=== PATIENT | male | born 2000 | race Asian ===

== ENCOUNTER 2022-12-05 09:25 | Emergency (ER) | payer OTHER, SELFPAY ==
[2022-12-05 09:50] VITALS: BP 128/61; PULSE 73; RESP 18; TEMP 36.6; O2SAT 98; BMI 23.6
--- NOTE | 2022-12-05 10:52 | ED.GENADULT ---
HPI - General Adult General Chief complaint: General Medical Stated complaint: shoulder pain/ jaw pain Time Seen by Provider: 12/05/22 10:41 Source: patient Mode of arrival: ambulatory Limitations: no limitations History of Present Illness HPI narrative: 22 yo male healthy here with complaints of right sided jaw pain x 1week with no injury or trauma. worsened with chewing, opening his mouth. No known injury or trauma. No radiation of pain. No difficulty breathing, difficulty swallowing. Related Data Allergies Allergy/AdvReac Type Severity Reaction Status Date / Time No Known Allergies Allergy Verified 12/05/22 09:49 Review of Systems Review of Systems: Yes all other systems are reviewed and are negative Constitutional: Constitutional: Reports no additional constitutional complaints, Denies body ache(s), Denies chills, Denies fever(s), Denies headache(s) and Denies weakness Eyes: Eyes: Reports no additional eye complaints and Denies change in vision ENT: Reports system reviewed and no additional complaints, except as documented, Denies dizziness, Denies headache(s), Denies nasal congestion, Denies nasal discharge and Denies neck pain Comments: +jaw pain Cardiovascular: Cardiovascular: Reports no additional cardiovascular complaints, Denies chest pain, Denies leg edema and Denies dyspnea Respiratory: Respiratory: Reports no additional respiratory complaints, Denies cough and Denies dyspnea Gastrointestinal: Gastrointestinal: Reports no additional gastrointestinal complaints, Denies abdominal pain, Denies diarrhea, Denies nausea and Denies vomiting Genitourinary: Genitourinary: Denies urinary incontinence Musculoskeletal: Musculoskeletal: Reports no additional musculoskeletal complaints, Denies back pain, Denies arthralgias, Denies joint swelling, Denies neck pain, Denies numbness and Denies tingling Integumentary/Breasts: Skin/Breast: Reports system reviewed and no additional complaints, except as docu and Denies rash Neurologic: Reports system reviewed and no additional complaints, except as documented, Denies Abnormal speech present, Denies dizziness, Denies headache(s), Denies numbness, Denies tingling and Denies weakness PMFSH Past Medical History Attestation statement: The following information was validated with the patient. Source: old records reviewed and nursing notes reviewed Social History Social History Advance Directives: No Physical Exam ED Vital Signs: Vital Signs - 24 hr 12/05/22 09:50 Temperature 98 F Pulse Rate 73 Respiratory Rate 18 Blood Pressure 128/61 Pulse Oximetry 98 BMI result Body Mass Index 23.6 Const General: cooperative, healthy appearing, comfortable and no acute distress Orientation/consciousness: patient oriented x3 Limitations: no limitations HENMT Head: Yes normal to inspection Ears: hearing grossly normal bilaterally and TM's normal bilaterally General nose exam: Normal external nose present Face and sinus: Yes normal facial exam Mouth: Normal oral and palatal mucosa present and other ( There is tenderness on palpation over the right TMJ. No trismus.) Throat: Yes posterior oropharynx normal Eyes General: appearance normal, both eyes and all related structures Pupils: Equal, round and reactive pupils present Neck Neck: Yes normal visual inspection, Yes full ROM and Yes no lymphadenopathy Chest Chest palpation & inspection: normal inspection of the chest Resp Effort & Inspection: normal respiratory effort Auscultation: clear to auscultation bilaterally Cardio Rate: regular rate Rhythm: regular rhythm Peripheral pulses: Peripheral pulses 2+ throughout GI Inspection: Yes normal to inspection Palpation (GI): Soft to palpation and nontender Auscultation: normal bowel sounds Back/Spine/Pelvis Thoracic/Lumbar Spine: thoracic and lumbar spine normal to inspection Skin General skin exam: no rashes or lesions noted Neuro General: patient oriented x3, no focal motor deficits and normal sensation to monofilament Cranial nerves: Yes Equal, round and reactive pupils present Cognition (Neuro): normal cognition Speech: No Abnormal speech present Gait exam (Neuro): Normal gait present Motor exam (neuro): 5/5 motor strength present throughout Extrem General: Yes normal to inspection Medical Decision Making Medical Decision Making MDM Narrative: 22-year-old male here with atraumatic right jaw pain for 1 week which is worsened with chewing, opening and closing his mouth. On exam patient has tenderness over the right TMJ with no trismus. Likely TMJ arthralgia. no injury reported to suggest dislocation or fracture will recommend NSAIDs, soft foods and follow up with primary or dental clinic. Differential Diagnosis Differential Diagnoses: The differential diagnosis associated with the presentation includes TMJ arthralgia low concern for fracture Tests considered The following testing was considered but not selected: no trauma or injury to suggest need for CT facial bones Prescription Management I considered prescription management with: Pain Medication see discussion above Discharge Plan Discharge Clinical Impression: TMJ arthralgia Patient Disposition: Home, Self-Care Instructions: Temporomandibular Disorder (ED) Additional Instructions: Ibuprofen 3 times a day as needed soft foods wear the retainer every night follow-up with your doctor and/or dentist Referrals: Physician,Román J [Primary Care Provider] - 1 week Interventions: ED Discharge Assessment Last Done: 12/05/22 11:16 Discharge Date/Time: 12/05/22 11:16
== END 2022-12-05 11:16 | disposition home or self-care (01) ==
PROVIDERS: Emergency Provider Emergency Medicine
DX: M26.621 Arthralgia of right temporomandibular joint (principal)
CPT/HCPCS: 99282

== ENCOUNTER 2023-10-30 20:23 | Emergency (ER) | payer OTHER, SELFPAY ==
--- NOTE | ~2023-10-30 | XR_ITS ---
EXAMINATION: XR HAND, RIGHT CLINICAL INFORMATION: Pain status-post injury. COMPARISON: None available. TECHNIQUE: PA, lateral, and oblique views of the right hand. FINDINGS: Bony alignment and mineralization are normal. A slightly displaced fracture fragment is noted of the lateral margin of the base of the fourth distal phalanx. The fracture line shows intra-articular extension. No dislocation is seen. The proximal and distal carpal rows are intact. There is a mild ulnar minus variance. No focal soft tissue swelling, gas or foreign body is seen. XR/XR hand RT min 3V IMPRESSION: A slightly displaced fracture fragment is noted of the lateral margin of the base of the fourth distal phalanx. This fracture shows intra-articular extension.
[2023-10-30 20:37] VITALS: BP 136/66; PULSE 67; RESP 16; TEMP 36.9; O2SAT 98; BMI 24.3
--- NOTE | 2023-10-30 20:41 | ED_ITS ---
HPI - General Adult General Chief complaint: General Medical Stated complaint: right hand inj Time Seen by Provider: 10/31/23 00:16 History of Present Illness ED Provider: Edmundo ALEX narrative: The patient is a generally healthy 23-year-old male who accidentally got the distal end of the right ring finger caught in a car door when the door was closing. There was no other injuries. He has a great deal of pain at the end of his finger. Related Data Previous Rx's ?Medication ?Instructions ?Recorded ibuprofen 600 mg tablet 600 mg PO Q6H PRN pain #14 tabs 10/31/23 morphine 15 mg immediate release 15 mg PO Q6H PRN pain #12 tabs 10/31/23 tablet Allergies Allergy/AdvReac Type Severity Reaction Status Date / Time No Known Allergies Allergy Verified 10/30/23 20:38 Review of Systems Review of Systems: Yes all other systems are reviewed and are negative [facility] Social History Social History Advance Directives: No Advance Directives Information Provided: No Do you have a plan to hurt others: No Plan Physical Exam ED Vital Signs: Vital Signs - 24 hr 10/30/23 20:37 10/31/23 00:29 10/31/23 00:48 Temperature 98.5 F 97.9 F 97.9 F Pulse Rate 67 64 64 Respiratory Rate 16 16 16 Blood Pressure 136/66 124/62 124/62 Pulse Oximetry 98 97 97 Oxygen Delivery Method Room Air Room Air Room Air BMI result Body Mass Index 24.3 Const Other: The patient is a healthy and athletic looking 23-year-old. He is awake and alert, pleasant and cooperative. He looks somewhat uncomfortable. HENMT Other: Face is unremarkable. Mucous membranes moist. Eyes Other: Pupils are round equal, conjunctivae clear Skin Other: There is some bruising along the paronychial skin on the radial side of the base of the nail of the right ring finger. The skin is intact. There is no subungual hematoma. Neuro Other: The patient is awake and alert with a normal mental status. The hand is neurovascularly intact. Extrem Other: The patient has some subtle soft tissue swelling to the radial side of the distal right ring finger. There is no gross deformity. There is some slight bruising under the paronychial skin but no disruption of the skin or the nail. No subungual hematoma. Course Course Course Narrative: RME performed by Rut Thurston PA-C. Patient is a 23 year old assigned male at presenting to the emergency department with right hand pain. Patient states at 2pm today he accidentally slammed his right hand in a car door. Detailed physical exam and review of systems are deferred to the roll or tape edge machine operator. Imaging ordered. Patient placed back in the waiting room pending room availability and results. Medications Administered Discontinued Medications Generic Name Dose Route Start Last Admin Trade Name Dagoberto PRN Reason Stop Dose Admin Acetaminophen 975 mg 10/31/23 00:30 10/31/23 00:36 Acetaminophen 325 Mg Tablet PO 10/31/23 00:31 975 mg ONCE ONE Administration Ketorolac Tromethamine 30 mg 10/31/23 00:27 10/31/23 00:36 Ketorolac Tromethamine 30 Mg/Ml Vial IM 10/31/23 00:28 30 mg ONCE ONE Administration Morphine Sulfate 30 mg 10/31/23 00:27 10/31/23 00:37 Morphine Sulfate Immed Release 15 Mg Tablet PO 10/31/23 00:28 30 mg ONCE ONE Administration Medical Decision Making Medical Decision Making MDM Narrative: The patient presents for evaluation of a crush injury to the distal portion of the right ring finger. An x-ray shows a nondisplaced fracture of the base of the distal phalanx on the radial side. This is an intra-articular fracture. The finger was splinted. I reviewed the x-ray with the patient. The patient was advised to keep the hand elevated. He was given a work note for modified duty. He was referred to the hand surgeon on-call. Discharge Plan Discharge Clinical Impression: Closed fracture of phalanx of right ring finger Patient Disposition: Home, Self-Care Instructions: Finger Fracture (ED) Additional Instructions: You have a fracture of the last bone of the ring finger of your right hand. The fracture is not out of place and should heal well in time. Please plan on keeping the finger splinted. Please do your best to keep the injury elevated to the level of your heart or higher. Keeping the hand elevated will reduce swelling and pain. You may take 2 extra-strength acetaminophen (Tylenol) up to 3 times a day as needed for pain. You may take ibuprofen every 6 hours as needed for pain. I have also sent a prescription for morphine tablets that you may use when necessary. No driving on morphine. Please contact the orthopedic office (Dr. Castro) on Wednesday morning for a follow up appointment this week for additional advice. Return to the emergency room if significantly worse. Prescriptions: New morphine 15 mg tablet 15 mg PO Q6H PRN (Reason: pain) Qty: 12 0RF Rx Instructions: Partial Fill upon patient request. ibuprofen 600 mg tablet 600 mg PO Q6H PRN (Reason: pain) Qty: 14 0RF Referrals: Skye Castro MD [Physician] - (distal phalanx fracture right ring finger) Stand Alone Forms: Work/School Release Interventions: ED Discharge Assessment Last Done: 10/31/23 00:48 Discharge Date/Time: 10/31/23 00:52 Print Language: Gibraltarian
[2023-10-31 00:29] VITALS: BP 124/62; PULSE 64; RESP 16; TEMP 36.6; O2SAT 97
[2023-10-31] MEDS: Ketorolac Tromethamine 30 MG/ML VIAL IM (00:36)
[2023-10-31] MEDS: Acetaminophen 325 MG TABLET 975 MG PO (00:36)
[2023-10-31] MEDS: Morphine Sulfate Immed Release 15 MG TABLET 30 MG PO (00:37)
[2023-10-31 00:48] VITALS: BP 124/62; PULSE 64; RESP 16; TEMP 36.6; O2SAT 97
== END 2023-10-31 00:52 | disposition home or self-care (01) ==
PROVIDERS: Emergency Provider Emergency Medicine; PCP Internal Medicine
DX: S62.604A Fracture of unspecified phalanx of right ring finger, initial encounter for closed fracture (principal); M79.641 Pain in right hand; Y29.XXXA Contact with blunt object, undetermined intent, initial encounter; Y93.89 Activity, other specified; Y92.810 Car as the place of occurrence of the external cause; Y99.8 Other external cause status
CPT/HCPCS: 73130; 96372; 99283; 99284; J1885

== ENCOUNTER 2023-11-09 08:48 | Outpatient (REF) | payer OTHER, SELFPAY ==
--- NOTE | ~2023-11-09 | XR_ITS ---
EXAMINATION: XR HAND, RIGHT CLINICAL INFORMATION: Pain COMPARISON: 10/30/2023 TECHNIQUE: PA, lateral, and oblique views of the right hand. FINDINGS: Minimally displaced fracture involving the lateral base of the fourth distal phalanx, unchanged in position. No new fracture. Remaining joint spaces are preserved. There is intra-articular extension of the fracture line. XR/XR hand RT min 3V IMPRESSION: Minimally displaced fracture involving the lateral base of the fourth distal phalanx, unchanged in position. Electronically signed by: Rosita Kirkpatrick MD 12/07/2023 06:23 PM EDT
== END 2023-11-09 08:49 | disposition home or self-care (01) ==
LOC: HO.HOSX 08:48
DX: S62.634B Displaced fracture of distal phalanx of right ring finger, initial encounter for open fracture (principal); M79.641 Pain in right hand
CPT/HCPCS: 73130; 99202

== ENCOUNTER 2023-11-09 11:16 | Outpatient (AMB) | payer OTHER, SELFPAY ==
--- NOTE | 2023-11-09 11:32 | A.OFFVIS_ITS ---
Vital Signs 11/09/23 11:34 Height 5 ft 9 in Weight 160 lb BMI 23.6 Handedness Right Intake Visit Reasons: FC- fracture of phalanx of right ring finger Intake Note: Claudy is a 23 year old right hand dominant male who presents today for an ED follow up s/p closed fracture of phalanx of right ring finger, DOI 10/30/23. Patient reports a car door was closed on all his fingers resulting in immediate pain and swelling. He was seen at [facility] [place] ED on 10/31/23 for this injury where he was placed in a splint and advised to follow up with orthopedics. Reports constant numbness under his nail of his right finger. He reports mild pain and tenderness when lifting objects. Patient reports he has FMLA paper work that he brought in 2 weeks ago that he is requesting to be complete and understands they have not been filled out yet due to his first visit being today. Allergies No Known Allergies Allergy (Verified 11/09/23 11:39) HPI HPI FC- fracture of phalanx of right ring finger: Details: Patient is a 23-year-old male who presents for evaluation of fracture of the distal phalanx of the right ring finger, date of injury 10/30/2023. On that day, the patient reports that a car door was closed on this finger. Patient does report that he thinks he had some minor bleeding at the right ring finger on date of injury. Patient was evaluated in the emergency department the next day, where x-rays were taken revealing a slightly displaced fracture of the proximal aspect of the distal phalanx of the right ring finger, with intra-articular involvement, involving approximately 5-10% of the joint surface. Today, the patient reports that he is experiencing minor discomfort with lifting or movement of the right ring finger, but experiences no discomfort at rest. The patient also reports that he is experiencing some numbness around the nail bed of the right ring finger since date of injury. No other acute complaints or concerns at this time. [facility] Social History (Updated 11/09/23 @ 11:40 by ELVIS Denis) Alcohol intake: current Alcohol intake frequency: holidays/special occasions only Patient Tobacco Use Status: Never used Tobacco Substance Use Type: Marijuana service: No Current occupational status: employed Current occupation: Nurse / Right hand dominant Review of Systems Const All systems reviewed & are unremarkable except as noted in HPI and below Physical Exam Vital Signs: BMI result Body Mass Index 23.6 Extrem Other: Patient is alert, oriented, and in no acute distress. Neuro: Median, ulnar, radial nerves motor and sensory intact and sensation is normal to the tips of all digits. Vascular: Cap refill brisk Pain: Patient reports tenderness to palpation about the DIP joint of the right ring finger, particularly of the radial aspect. No other tenderness to palpation noted ROM: Range of motion of the right hand full and intact Patient is able to make a closed fist Good finger cross Skin: There is noted to be a small subungual hematoma on the proximal aspect of the nail of the right ring finger, as well as a subcutaneous hematoma just proximal to the nail bed, where the patient reports he may have had some bleeding on date of injury General: No ecchymosis, erythema, or evidence of infection. Psych: Appears grossly normal Affect normal Attitude cooperative Office Procedures Fracture Care Details: Open distal phalanx fracture of right ring finger Fracture Billing Code: Fracture Billing Code Results Reviewed Results Reviewed: X-rays obtained in the office today and independently reviewed by me, Coleman Lowery PA-C, demonstrate minimally displaced fracture of the base of the distal phalanx of the right ring finger, unchanged from previous x-ray. Assessment & Plan Assessment & Plan (1) Open fracture of distal phalanx of right ring finger: Code(s): S62.634B - Displaced fracture of distal phalanx of right ring finger, initial encounter for open fracture Category: Medical Plan 1. Open fracture of distal phalanx of right ring finger Date of injury 10/30/2023 At this time, due to the patient's reports that he feels he may have bled from the injury site at date of injury, this injury must be considered an open fracture Patient is leaving for [place] tomorrow for the next 10 days, so he will be sent a 10 day course of Augmentin to begin tonight to cover for any potential infection Patient is also provided with a finger tip silver finger splint to wear with daytime activities, removal for bathing and sleeping Patient is also advised to continue with active range of motion training of the right hand, to prevent stiffness Patient is advised that if he has any signs or symptoms of infection, namely but not limited to increasing pain, erythema, edema, or drainage from the area, he should present to an emergency department while in [place]. Patient is advised that he can gently wash the area with soap and water, but should avoid any submersion of the right hand in water, any dirty activities such as fishing or gardening, or strenuous activities. Patient will follow-up upon his return from [place] for repeat assessment, sooner with any acute concerns. Orders: Orders XR hand RT min 3V Today M79.641 - Pain in right hand Medications: New 2 amoxicillin-pot clavulanate 875-125 mg 1 tab PO BID 20 tabs 0RF 10 days Discontinued ibuprofen Discontinued Reason: Patient no longer taking 600 mg PO Q6H PRN 14 tabs 0RF pain Coding Level of Care Code New Pt Level 3 (89782) Diagnoses Open fracture of distal phalanx of right ring finger S62.634B CPT Codes Fracture Care - Fracture Billing Code: Fracture Billing Code ([id number])
[2023-11-09 11:34] VITALS: BMI 23.6
== END 2023-11-09 12:21 | disposition home or self-care (01) ==
PROVIDERS: PCP Internal Medicine
DX: S62.634B Displaced fracture of distal phalanx of right ring finger, initial encounter for open fracture (principal)
CPT/HCPCS: 99204

== ENCOUNTER 2023-11-23 08:38 | Outpatient (REF) | payer OTHER, SELFPAY ==
--- NOTE | ~2023-11-23 | XR_ITS ---
EXAMINATION: XR HAND, RIGHT CLINICAL INFORMATION: Right hand pain. COMPARISON: Most recent right hand radiographs dated 11/09/2023. TECHNIQUE: PA, lateral, and oblique views of the right hand. FINDINGS: Redemonstration of a mildly displaced, oblique fracture through the radial base of the fourth distal phalanx. Slight interval increase in displacement when compared to the prior examination. This contacts the periphery of the fracture line. No new bone/callus formation. No new fracture or dislocation. No osseous erosion. No abnormal soft tissue calcification. XR/XR hand RT min 3V IMPRESSION: Mildly displaced, oblique fracture through the radial base of the fourth distal phalanx with slight interval increase in displacement compared to the prior examination. Electronically signed by: Nicanor Benavides MD 12/13/2023 08:56 PM EDT
== END 2023-11-23 08:39 | disposition home or self-care (01) ==
LOC: HO.HOSX 08:38
DX: M79.641 Pain in right hand (principal)
CPT/HCPCS: 73130; 99212

== ENCOUNTER 2023-11-23 09:16 | Outpatient (AMB) | payer OTHER, SELFPAY ==
--- NOTE | 2023-11-23 09:20 | A.OFFVIS_ITS ---
Vital Signs 11/23/23 09:23 Height 5 ft 9 in Weight 160 lb BMI 23.6 Intake Visit Reasons: OV fracture of phalanx of right ring finger Intake Note: Claudy is a 23 year old right hand dominant male who presents today for follow up s/p closed fracture of phalanx of right ring finger, DOI 10/30/23. Patient reports having pain with picking up items, causing him to drop the item. He has completed the antibiotics that was prescribed. Allergies No Known Allergies Allergy (Verified 11/23/23 09:24) HPI HPI OV fracture of phalanx of right ring finger: Details: Patient is a 23-year-old male who presents for follow-up evaluation of distal phalanx fracture of the right ring finger, date of injury 10/30/2023. The patient reports that he has been feeling well since previous evaluation, and then he has not noticed any worsening symptoms. Of note, there was concern at last visit that this was an open fracture, however all blood appears to be concentrated in a subungual hematoma of the right ring finger. The patient reports that he is still experiencing discomfort in the distal phalanx of the right ring finger, but it has not worsened since date of injury. Patient reports that the numbness and tingling he was previously experiencing in his right ring finger has since resolved. Patient reports that he has been wearing the splint consistently since previous evaluation. Patient has finished his previously prescribed course of antibiotics without difficulty. No other acute complaints or concerns at this time. [facility] Social History Alcohol intake: current Alcohol intake frequency: holidays/special occasions only Patient Tobacco Use Status: Never used Tobacco Substance Use Type: Marijuana service: No Current occupational status: employed Current occupation: Nurse / Right hand dominant Physical Exam Vital Signs: BMI result Body Mass Index 23.6 Extrem Other: Patient is alert, oriented, and in no acute distress. Neuro: Patient reports normal sensation to the tip of the right ring finger at this time Vascular: Cap refill brisk Pain: Patient reports tenderness to palpation about the DIP joint of the right ring finger, particularly of the radial aspect. No other tenderness to palpation noted ROM: Range of motion of the right hand full and intact Patient is able to make a closed fist Good finger cross Skin: There is noted to be a small subungual hematoma on the proximal aspect of the nail of the right ring finger General: No ecchymosis, erythema, or evidence of infection. Psych: Appears grossly normal Affect normal Attitude cooperative Results Reviewed Results Reviewed: X-rays obtained in the office today and independently reviewed by me, Coleman Lowery PA-C, demonstrate displaced avulsion fracture of the radial base of the right ring finger, slightly more displaced when compared to previous x-rays. Assessment & Plan Assessment & Plan (1) Fracture of distal phalanx of right ring finger: Code(s): S62.634A - Displaced fracture of distal phalanx of right ring finger, initial encounter for closed fracture Category: Medical Plan 1. Fracture of distal phalanx of right ring finger Date of injury 10/30/2023 Patient is recovering well from his injury Patient is educated about the typical recovery course At this time, the patient is cleared for return to work on a light duty basis, with a 2 lb weight restriction in his right hand Due to all of the blood being concentrated in a subungual hematoma, along with no evidence of any active infection, the patient does not require a 2nd course of antibiotics. Patient is amenable to this plan Patient will follow-up in 4 weeks with repeat x-rays, sooner with any acute concerns Orders: Orders XR hand RT min 3V Today M79.641 - Pain in right hand Coding Level of Care Code Global (89190) Diagnoses Fracture of distal phalanx of right ring finger S62.634A
[2023-11-23 09:23] VITALS: BMI 23.6
== END 2023-11-23 09:47 | disposition home or self-care (01) ==
PROVIDERS: PCP Internal Medicine
DX: S62.634A Displaced fracture of distal phalanx of right ring finger, initial encounter for closed fracture (principal)
CPT/HCPCS: 99213

== ENCOUNTER 2023-12-22 09:18 | Outpatient (REF) | payer OTHER, SELFPAY ==
--- NOTE | ~2023-12-22 | XR_ITS ---
EXAMINATION: XR HAND, RIGHT CLINICAL INFORMATION: M79.641 - Pain in right hand COMPARISON: November 23, 2023. TECHNIQUE: PA, lateral, and oblique views of the right hand. FINDINGS: Submitted for interpretation on February 28, 2024. There is a focal cortical disruption at the radial aspect base of the distal phalanx extending intra-articularly without callus formation or periosteal bone reaction. The metacarpals, carpal bones, distal radius and ulna are intact. The following images from the first to the third digits are intact. The phalanges of the fifth digit are intact. 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 Electronically signed by: Kannan Alvarado MD 02/28/2024 01:17 PM [facility]
== END 2023-12-22 09:19 | disposition home or self-care (01) ==
LOC: HO.HOSX 09:18
PROVIDERS: PCP Internal Medicine
DX: S62.634A Displaced fracture of distal phalanx of right ring finger, initial encounter for closed fracture (principal); M79.641 Pain in right hand
CPT/HCPCS: 73130; 99212

== ENCOUNTER 2023-12-22 09:18 | Outpatient (AMB) | payer OTHER, SELFPAY ==
--- NOTE | 2023-12-22 09:27 | MHC.OFFVIS ---
Vital Signs 12/22/23 09:28 Height 5 ft 9 in Weight 160 lb BMI 23.6 Handedness Right Intake Visit Reasons: OV fracture of phalanx of right ring finger Intake Note: Claudy is a 23 year old right hand dominant male who presents today for a follow up for his closed fracture of phalanx of right ring finger, DOI 10/30/23. Patient reports his right ring finger has pain with grasping and lifting but is fine at rest. He expresses 6/7 out of 10 when he has these pains. Allergies No Known Allergies Allergy (Verified 12/22/23 09:28) HPI HPI OV fracture of phalanx of right ring finger: Details: Patient is a 23-year-old male who presents for follow-up evaluation of fracture of the distal phalanx of the right ring finger, date of injury 10/30/2023. Today, the patient reports that he does not experience any pain at baseline, and then the area of the fracture is totally nontender to palpation, but states that he does experience pain, that he describes as sharp, in the area of the fracture when he makes a closed fist, crotch breaker things, or lifts things. The patient states that this pain is primarily localized about the DIP joint of the right ring finger. Patient denies any numbness or tingling of the right hand. Patient reports that the fingernail of his right ring finger is growing in well. No other acute complaints or concerns at this time. [facility] Social History Alcohol intake: current Alcohol intake frequency: holidays/special occasions only Patient Tobacco Use Status: Never used Tobacco Substance Use Type: Marijuana service: No Current occupational status: employed Current occupation: Nurse / Right hand dominant Physical Exam Vital Signs: BMI result Body Mass Index 23.6 Extrem Other: Patient is alert, oriented, and in no acute distress. Neuro: Patient reports normal sensation to the tip of the right ring finger at this time Vascular: Cap refill brisk Pain: Patient reports no tenderness to palpation about the DIP joint of the right ring finger, particularly of the radial aspect. No other tenderness to palpation noted ROM: Range of motion of the right hand full and intact Patient is able to make a closed fist, but reports discomfort in the DIP joint of the right ring finger when doing so Good finger cross Skin: There is noted to be a small subungual hematoma on the middle aspect of the nail of the right ring finger General: No ecchymosis, erythema, or evidence of infection. Psych: Appears grossly normal Affect normal Attitude cooperative Results Reviewed Results Reviewed: X-rays obtained in the office today and independently reviewed by me, Coleman Lowery PA-C, demonstrate minimally displaced fracture of the base of the distal phalanx of the right ring finger with evidence of improved alignment and interval bony healing. Assessment & Plan Assessment & Plan (1) Fracture of distal phalanx of right ring finger: Code(s): S62.634A - Displaced fracture of distal phalanx of right ring finger, initial encounter for closed fracture Category: Medical Plan 1. Right ring finger distal phalanx fracture Date of injury 10/30/2023 Patient appears to be recovering well from his injury Patient is educated about the typical recovery course At this time, patient is referred to occupational therapy for range of motion, strengthening, stabilization of the joints of the right hand, particularly the right ring finger Patient is informed that he no longer needs to wear the finger splint, as he is far enough out from his injury where displacement is unlikely Patient is amenable to this plan Patient is cleared to return to work on 01/05/2024, but is informed that if he experiences any increased symptoms at that time, he should discontinue and be re-evaluated Patient is amenable to this Patient will follow-up as needed with any acute concerns Orders: Orders XR hand RT min 3V Today M79.641 - Pain in right hand OT Evaluation and Treatment Today S62.634A - Displaced fracture of distal phalanx of right ring finger, initial encounter for closed fracture Coding Level of Care Code Global (90883) Diagnoses Fracture of distal phalanx of right ring finger S62.634A
[2023-12-22 09:28] VITALS: BMI 23.6
== END 2023-12-22 10:14 | disposition home or self-care (01) ==
PROVIDERS: PCP Internal Medicine
DX: S62.634D Displaced fracture of distal phalanx of right ring finger, subsequent encounter for fracture with routine healing (principal)
CPT/HCPCS: 99213

== ENCOUNTER → 2023-12-22 09:49 | Outpatient (BNV) | payer OTHER, SELFPAY | PROVIDERS: PCP Internal Medicine; Visit Provider Radiology Diagnostic Radiology | DX: S62.634K Displaced fracture of distal phalanx of right ring finger, subsequent encounter for fracture with nonunion (principal) | CPT/HCPCS: 73130 ==

== ENCOUNTER 2024-01-04 10:29 | Outpatient (RCR) | payer OTHER, SELFPAY ==
--- NOTE | 2024-01-04 15:59 | MHC.OT.OEV ---
[address] [phone] F: [phone] Occupational Therapy Evaluation Patient Name: Claudy Malik Diagnosis: (R) RF DIP FX Date of Onset: 10/30/23 Date of Surgery: Attending Provider: Coleman Lowery Prescribed Treatment: MD Follow Up Appointment: History of Current Condition: 23 y/o M s/p (R) RF DIP fx after slamming it in car door on 10/30/2023. Pt presents with no pain at rest and 3/10 pain upon lifting heavy objects. He currently lives with his family who will sometimes help him open jars or medication bottles if he needs help otherwise pt is IND with ADL/IADL tasks at baseline. Pt presents with dull aching pain when lifting or picking up objects that is localized around the radial aspect of the DIP of the (R) RF. Pt reports having decreased coordination in his right hand and fears dropping objects at work due to a lack of cheese processor strength. Pt states his fine motor skills are good however he is more concerned with gross motor and strength of his hand. 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 Significant Medical History: Pt reports getting his wisdom teeth out a few days ago. Precautions/Contraindications: Patient Goals: Pt wants to return to his PLOF and improve his overall strength and coordination in his (R) hand. 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 Skin and Soft Tissue Assessment Skin and Soft Tissue: Other Comments: discoloration and disfigured nail bed (R) RF from shutting it in car door skin intact Nerve assessment Ulnar Nerve: Median Nerve: Radial Nerve: Comments: WFL Sensory Assessment Temperature: Light Touch: Proprioception: Vibration: Comments: WFL Edema Assessment Upper Extremity: Lower Extremity: Comments: none present Dexterity Assessment Dexterity: Comments: Was not tested; inability to access assessments due to construction Special Tests Comments: Monofilament (WFL) Decision Unit Rn strength (R) 68lbs (L) 83lbs AROM(PROM) Strength Cervical Cervical Flexion: Cervical Extension: Cervical Lateral Flexion: Cervical Rotation: Comments: Shoulder Flexion: Extension: Abduction: Internal Rotation: External Rotation: Comments: WFL Flexion: Extension: Abduction: Internal Rotation: External Rotation: Comments: WFL Elbow Flexion: Extension: Pronation: Supination: Comments: WFL Flexion: Extension: Pronation: Supination: Comments: WFL Wrist Flexion: 75* Extension: 53* Ulnar Deviation: Radial Deviation: Comments: Wrist ROM WFL Flexion: Extension: Ulnar Deviation: Radial Deviation: Comments: WFL Thumb Thumb CMC Flexion: Thumb MCP Flexion: Thumb IP Flexion: Radial Abduction: Palmar Abduction: [place] ([place] 0-10): Comments: Digits Index MCP: PIP: DIP: Long MCP: PIP: DIP: Ring MCP: 70* (R) PIP: 81 * (R) DIP: 21/40* (R) Small MCP: PIP: DIP: Comments: Gross Grasp: (R) 68lbs (L) 83lbs Lateral Pinch: (R) 14lbs (L) 16 lbs Two-Point Pinch: (R) 9lbs (L) 9lbs Three-Jaw Tyson: (R) 10 lbs(L) 9lbs Comments: Gross grasp decreased (R) side Patient Education Primary Language: [place] 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 Patient demonstrates Patient verbalizes Barriers to Learning: None Readiness for Learning: Accepting Who was educated? Patient Comments: Plan of Care Assessment: 23 y/o M s/p (R) RF DIP fx c/c of pain, decreased cheese processor strength, and coordination. Pt reports aching pain along the radial aspect of the DIP of the (R) RF. Pt demonstrates having strong rehab potential due to age and being close to PL. Pt is still working both jobs with minimal limitations. Due to documented impairments it is recommended pt receives short term skilled OT in order to improve cheese processor strength and coordination and return him to full PLOF. Pt tolerated gentle stretching and strengthening well today with no pain. Future treatment sessions should focus on strengthening his gross cheese processor strength and improving coordination and skill with functional tasks. STG Duration: 2 weeks Short Term Goals: Pt will increase (R) RF DIP flexion by at least 9* Patient will increase (R)cheese processor strength to 70lbs. to increase (I) during self care tasks Patient will report decrease pain from 3/10 to 2/10 during work activities LTG Duration: 4 weeks Panel Gluer Goals: Pt will report less than 0/10 pain with lifting heavy objects during work pt will increase gross cheese processor strength by at least 10 pounds to increase (I) IADLs pt will be IND with following his HEP for increased functional activity tolerance during self care tasks Frequency and Duration: The patient will be seen 1x a week for 3 weeks Treatment Plan: Therapeutic Exercise Therapeutic Activity Home Exercise Program ADL Training [facility] Skilled OT treat Electronically Signed By: Sofia Guzman OT/s Reviewed/agree with student documentation: Therapist: Sondra Quinn, OTR/L, CLT Please sign and return to therapist, Thank you for your referral.
--- NOTE | 2024-05-11 14:31 | MHC.OT.DC ---
[address] [phone] F: [phone] Occupational Therapy Discharge Note Patient Name: Claudy Malik Provider: Coleman Lowery Diagnosis: (R) RF DIP FX Date of Surgery: Date of Evaluation: 01/04/24 Date of Discharge: 05/11/24 Treatments to Date: 1 Cancellations to Date: No Shows to Date: Discharge Status: Visit Non-compliance Discharge Summary: See OT assessment Electronically Signed By: RADHA Casiano/BEA Chase Reviewed/agree with student documentation: Therapist: LOREE Casiano CLT Please Sign and return to therapist, thank you for your referral.
== END 2024-05-11 14:31 | disposition home or self-care (01) ==
LOC: HO.OT 10:29
PROVIDERS: PCP Internal Medicine
DX: S62.634D Displaced fracture of distal phalanx of right ring finger, subsequent encounter for fracture with routine healing (principal)
CPT/HCPCS: 97110; 97165